=== PATIENT | male | born 1945 | race Caucasian/White ===

== ENCOUNTER 2019-11-10 17:15 | Emergency (ER) | payer OTHER ==
[~2019-11-10] VITALS: Ht 172.7 cm; Wt 130.6 kg
[~2019-11-10 17:15] MED LIST: ACYC800 PO; ALBU3IS INH; ALBU90OI INH; ALBU90OI6 INH; ALBU90OI61 INH; AMIT50 PO; AMIT75; ASPI81CH PO; ASPI81EC PO; Antacid500 MG PO; Aranesp40 MCG/0.4 INJ; BIOTENE MOIST44.3 ML PO; BUDESONIDE 32 MCG; BUME2 PO; BUSP15; BUSP15 PO; CALC.25 PO; CALCIUM + D SO1 EACH PO; CALMAGZIN PO; CLON.5 PO; CLON1 PO; COMPLETE MULTI1 EAC1 PO; DIGO.125 PO; DUTA.5 PO; DUTASTERIDE0.5 MG PO; EQUATE; FLUSAL2505; FLUSAL2505 INH; FURO40 PO; Flonase 0.05% N16 GM; GABA300 PO; Gas Relief80 MG PO; HYDACE10A PO; HYDACE10B PO; IPRA.03NI; IRON150C PO; LEVFLO500; LISI5 PO; LUBRICANT EYE D10 ML BOTHEYES; MECL25; METO2.5 PO; MOISTURIZING L473 ML TOP; NAPR500; NEBI10 PO; NITR.4SL SL; NYST100TO TOP; Nystatin15 GM TOP; OMEP20ER PO; Omeprazole20 M1 PO; POTA10T PO; PREVIDENT; PYRI100 PO; QUIN325; RISP.25 PO; SERT100; SERT100 PO; SPIR25 PO; TAMS.4ER; TRIA80TC TOP; Triamcinolone A15 G3 TOP; VITAMIN D3400 UNIT PO; [UNRECOGNIZED DRUG - REMARK] PO
== END 2019-11-10 20:03 | disposition home or self-care (01) ==
LOC: ER 17:15
DX: S01.01XA Laceration without foreign body of scalp, initial encounter (principal); M84.48XA Pathological fracture, other site, initial encounter for fracture; J44.9 Chronic obstructive pulmonary disease, unspecified; F32.9 Major depressive disorder, single episode, unspecified; Z88.0 Allergy status to penicillin; Z79.82 Long term (current) use of aspirin; Z79.899 Other long term (current) drug therapy; Z87.891 Personal history of nicotine dependence; W01.198A Fall on same level from slipping, tripping and stumbling with subsequent striking against other object, initial encounter; Y92.009 Unspecified place in unspecified non-institutional (private) residence as the place of occurrence of the external cause
CPT/HCPCS: 12004; 36415; 70450; 72070; 72100; 99284-25

== ENCOUNTER 2021-10-08 21:08 | Inpatient (IN) | payer OTHER ==
[~2021-10-08] VITALS: Ht 172.7 cm; Wt 75.4 kg
[2021-10-08] MEDS ORDERED: BUMETANIDE2 M6 PO (21:36)
[2021-10-08] MEDS ORDERED: AMITRIPTYLINE H25 MG PO (21:37)
[2021-10-08 21:52] LABS: BASOPHILS ABSOLUTE AUTO 0.07 K/mm3 (0.00-0.23); BASOPHILS PERCENT AUTO 0 % (0-2); EOSINOPHILS ABSOLUTE AUTO 0.02 K/mm3 (0.00-0.68); EOSINOPHILS PERCENT AUTO 0 % (0-6); Hematocrit 40.6 % (37.0-53.0); Hemoglobin 13.4 g/dL (13.5-17.5); IMMATURE GRAN ABSOLUTE AUTO 0.15 K/mm3 (0.00-0.10); IMMATURE GRAN PERCENT AUTO 1 % (0-1); LYMPHOCYTES PERCENT AUTO 7 % (21-46); MONOCYTES ABSOLUTE AUTO 2.44 K/mm3 (0.16-1.47); MONOCYTES PERCENT AUTO 10 % (4-13); Mean Corpuscular HGB 32.9 pg (26.0-34.0); Mean Corpuscular Volume 100 fL (80-100); Mean Platelet Volume 11.7 fL (9.1-12.4); NEUTROPHILS ABSOLUTE AUTO 20.59 K/mm3 (1.96-9.15); NEUTROPHILS PERCENT AUTO 82 % (41-73); Platelet Count 245 K/mm3 (150-400); RDW Coefficient Variation 13.4 % (11.7-14.2); RDW Standard Deviation 49.4 fL (35.1-46.3); Red Blood Cell Count 4.07 M/mm3 (4.30-5.90); White Blood Cell Count 24.97 K/mm3 (4.00-11.30)
[2021-10-08 22:01] LABS: Source, Urine Clean Catch
[2021-10-08 22:04] LABS: Albumin, Blood 2.7 g/dL (3.4-5.0); Albumin/Globulin Ratio 0.7 (0.8-1.8); Bun/Creatinine Ratio 18.5 (12.0-20.0); Calcium, Blood 9.6 mg/dL (8.5-10.1); Creatinine, Blood 2.75 mg/dL (0.60-1.20); Globulin, Blood 4.1 g/dL (2.2-4.0); Potassium, Blood 3.5 mmol/L (3.5-5.5); Total Protein, Blood 6.8 g/dL (6.4-8.2)
[2021-10-08 22:08] LABS: Bilirubin, Urine Neg (Neg); Blood, Urine Neg (Neg); Glucose Qualitative, Urine Neg (Neg); Ketones, Urine Neg (Neg); Leukocyte Esterase, Urine Neg (Neg); Nitrite, Urine Neg (Neg); Protein, Urine Neg (Neg); Urobilinogen, Urine NORM (Normal)
[2021-10-08 22:26] LABS: Appearance, Urine Clear (Clear); Color, Urine Yellow (P-Yellow)
[2021-10-08 22:42] LABS: Creatine Kinase MB 5.4 ng/mL (0.0-3.6); Creatine Kinase MB Index 1.8 (0.0-4.0)
[2021-10-08 23:27] LABS: Influenza A, PCR NEGATIVE (NEGATIVE); Influenza B, PCR NEGATIVE (NEGATIVE); Resp Syncytial Virus, PCR NEGATIVE (NEGATIVE); SARS-Cov-2 (COVID-19) PCR, MMC NEGATIVE (NEGATIVE)
[2021-10-09 06:06] LABS: BASOPHILS ABSOLUTE AUTO 0.06 K/mm3 (0.00-0.23); BASOPHILS PERCENT AUTO 0 % (0-2); EOSINOPHILS ABSOLUTE AUTO 0.07 K/mm3 (0.00-0.68); EOSINOPHILS PERCENT AUTO 0 % (0-6); Hematocrit 36.8 % (37.0-53.0); Hemoglobin 11.6 g/dL (13.5-17.5); IMMATURE GRAN PERCENT AUTO 1 % (0-1); LYMPHOCYTES ABSOLUTE AUTO 1.91 K/mm3 (0.84-5.20); LYMPHOCYTES PERCENT AUTO 11 % (21-46); MONOCYTES ABSOLUTE AUTO 1.69 K/mm3 (0.16-1.47); MONOCYTES PERCENT AUTO 10 % (4-13); Mean Corpuscular HGB 32.5 pg (26.0-34.0); Mean Corpuscular HGB Conc 31.5 g/dL (31.5-36.5); Mean Corpuscular Volume 103 fL (80-100); Mean Platelet Volume 11.5 fL (9.1-12.4); NEUTROPHILS ABSOLUTE AUTO 13.72 K/mm3 (1.96-9.15); NEUTROPHILS PERCENT AUTO 78 % (41-73); Platelet Count 193 K/mm3 (150-400); RDW Coefficient Variation 13.4 % (11.7-14.2); RDW Standard Deviation 51.7 fL (35.1-46.3); Red Blood Cell Count 3.57 M/mm3 (4.30-5.90); White Blood Cell Count 17.55 K/mm3 (4.00-11.30)
[2021-10-09 06:24] LABS: Albumin, Blood 2.2 g/dL (3.4-5.0); Albumin/Globulin Ratio 0.6 (0.8-1.8); Bun/Creatinine Ratio 18.9 (12.0-20.0); Calcium, Blood 7.8 mg/dL (8.5-10.1); Creatinine, Blood 2.28 mg/dL (0.60-1.20); Globulin, Blood 3.8 g/dL (2.2-4.0); Potassium, Blood 3.3 mmol/L (3.5-5.5)
--- NOTE | 2021-10-09 07:20 | NUR ---
END OF SHIFT PT ARRIVED AT 430 PT IS A&O X4 HAVING SIGNIFICANT PAIN FROM THE 15 FALLS HE STATES HES HAD LAST 2 DAYS. PT IS COVERED WITH SKIN TEARS AND BRUSING. CENTRAL LINE WAS PLACED AT BEDSIDE FOR PRESSOR XRAY CONFERMED PLACEMENT. PT REMAINS ON RA ALTHOUGH PT SOUNDS WET BILATERAL. SEE ASSESMRNT FOR HEAD TO TOE
[2021-10-09 10:51] LABS: Source, Urine Voided
[2021-10-09 11:27] LABS: Appearance, Urine Clear (Clear); Bilirubin, Urine Neg (Neg); Blood, Urine Neg (Neg); Color, Urine Yellow (P-Yellow); Glucose Qualitative, Urine Neg (Neg); Ketones, Urine Neg (Neg); Leukocyte Esterase, Urine Neg (Neg); Nitrite, Urine Neg (Neg); Protein, Urine Neg (Neg); Specific Gravity, Urine 1.015 (1.003-1.022); Urobilinogen, Urine NORM (Normal)
--- NOTE | 2021-10-09 14:02 | NUR ---
Pt resting in bed and appears weak and frail. Pt is A&O and reports being hungry. Listened as Pt reports plan for ST to evaluate before receiving a diet. Brief discussion regarding current code status and POLST on file. Gentle education on life sustaining treatments including risk factors and implications of CPR. Pt reports being unsure of his wishes and would like some time to consider. Pt agreeable to remain a full code for now. Palliative Care will remain available.
--- NOTE | 2021-10-09 22:03 | NUR ---
update $ unitsd of ffp transfused and lp compleated by Vini allen CSF sent to lab. pt was hypertensive in 190s but 2mg of versed and 50 mcg of fent given with good results blood pressure is coming down. will continue to moniter
[2021-10-10 04:05] LABS: BASOPHILS ABSOLUTE AUTO 0.01 K/mm3 (0.00-0.23); BASOPHILS PERCENT AUTO 0 % (0-2); EOSINOPHILS ABSOLUTE AUTO 0.01 K/mm3 (0.00-0.68); EOSINOPHILS PERCENT AUTO 0 % (0-6); Hematocrit 35.3 % (37.0-53.0); Hemoglobin 11.5 g/dL (13.5-17.5); IMMATURE GRAN ABSOLUTE AUTO 0.06 K/mm3 (0.00-0.10); IMMATURE GRAN PERCENT AUTO 1 % (0-1); LYMPHOCYTES ABSOLUTE AUTO 0.74 K/mm3 (0.84-5.20); LYMPHOCYTES PERCENT AUTO 7 % (21-46); MONOCYTES PERCENT AUTO 2 % (4-13); Mean Corpuscular HGB Conc 32.6 g/dL (31.5-36.5); Mean Corpuscular Volume 101 fL (80-100); Mean Platelet Volume 11.1 fL (9.1-12.4); NEUTROPHILS ABSOLUTE AUTO 9.78 K/mm3 (1.96-9.15); NEUTROPHILS PERCENT AUTO 90 % (41-73); Platelet Count 223 K/mm3 (150-400); RDW Coefficient Variation 13.4 % (11.7-14.2); RDW Standard Deviation 50.6 fL (35.1-46.3); Red Blood Cell Count 3.48 M/mm3 (4.30-5.90)
[2021-10-10 04:23] LABS: Albumin, Blood 2.2 g/dL (3.4-5.0); Albumin/Globulin Ratio 0.6 (0.8-1.8); Bilirubin, Total 0.4 mg/dL (0.1-1.0); Bun/Creatinine Ratio 17.5 (12.0-20.0); Calcium, Blood 7.6 mg/dL (8.5-10.1); Creatinine, Blood 2.23 mg/dL (0.60-1.20); Globulin, Blood 3.8 g/dL (2.2-4.0); Magnesium, Blood 1.8 mg/dL (1.6-2.4); Phosphorus, Blood 2.1 mg/dL (2.5-4.9); Potassium, Blood 3.6 mmol/L (3.5-5.5)
--- NOTE | 2021-10-10 04:48 | NUR ---
END OF SHIFT SUMMARY NO OVERNIGHT EVENTS. PT REMAINS ON LEVOPHED WAS ABLE TO TITRATE TO 2.5 WILL CONTINUE TO TITRATE DOWN APPROPRIATE. PT HAD SIGNIFICANT PAIN AT START OF SHIFT BUT 1 NORCO WAS ABLE TO KEEP HIS PAIN WELL CONTROLLED. PT IS COVERED IN SKIN TEARS AND BRUSING FROM HIS MULITABLE FALLS. HES SINUS RYTHEM IN 80'S 100% O2 SATURATION ON ROOM AIR.WILL CONTINUE TO MONITOR AND REPORT OFF TO ON COMMING RN
--- NOTE | 2021-10-10 09:30 | NUR ---
UPDATE: KAIDEN SWAIN. SEE INSTRUCTIONs OUTSIDE PT DOOR. DIET: PUREE LIQUIDS: THIN w/ SPOON ONLY, NO STRAWs MEDS: CRUSHED IN APPLESAUCE ASSIST W/ ALL MEALS. ORAL CARE q4hr
--- NOTE | 2021-10-10 10:54 | NUR ---
DR HAMMER @ BEDSIDE FOR AM ROUNDS; UPDATED ON PT POSITIVE PROGRESS T/O THE MORNING. DISCUSSED CONCERN FOR INC SWELLING & REDNESS TO L HAND & FINGERS. ++PULSES, ROM LIMITED D/T SWELLING BUT PT ABLE TO DEMONSTRATE RADIAL & MEDIAN NERVE INTACT. DR HAMMER TO PLACE ORDERS FOR L HAND & CHEST CT. PT REPORTS PAIN CONTROLLED, CALL LIGHT W/ IN REACH.
--- NOTE | 2021-10-10 16:17 | NUR ---
PT'S NEIGHBOR, MEI, IS CARING FOR HIS DOG. HE REQUESTS SHE TAKE HIS KEYS & TAKE CARE OF HIS HOME & MAIL. MEI CALLED & UPDATED. SHE EXPRESSES HER CONCERN W/ THE PT's LIVING SITUATION, THAT IT IS UNSAFE THE PT HAS HIS FLOOR COVERED IN DOG PEE PADS & IT IS A FALL RISK. DESPITE CAREGIVER HELP x26hr/week, SHE DOES NOT BELIEVE HE IS RECEIVING GOOD CARE. NEIGHBOR WILL BE HERE SHORTLY FOR VISITATION. CONTACT INFO:
--- NOTE | 2021-10-10 16:33 | NUR ---
IN SPEAKING TO PT ABOUT WHAT KIND OF HELP HE RECEIVES FROM HIS CAREGIVER, PT STS "SHE WEIGHS 300lbs AND CAN'T HELP ME UP OR WITH MUCH OF ANYTHING". STS SHE DOES TAKE HIM GROCERY SHOPPING BUT HELPS MINIMALLY IN THE HOME. WILL DISCUSS W/ CARE MANAGEMENT & PALLIATIVE CARE WHEN AVAILABLE TO ENSURE SAFE DC.
--- NOTE | 2021-10-10 17:28 | NUR ---
UPDATE: MAPs CONSISTENTLY TRENDING DOWN WHEN APPROACHING TIME FOR SCHEDULED MIDODRINE. WITHIN 15min OF TAKING DOSE, MAP BEGIN TO TREND UP TO >65 & MAINTAIN >65. WILL DISCUSS INCREASING DOSE W/ HOSPITALIST ONCE AVAILABLE.
--- NOTE | 2021-10-10 22:14 | NUR ---
SHIFT ASSESSMENT ASSUMED CARE OF PT @ 1900. PT A&OX4, FOLLOWING ALL COMMANDS. PT C/O MILD PAIN IN L ARM AND RIBS BUT STILL ABLE ASSIST WITH TURNS. USING CALL LIGHT APPROPRIATELY, NEEDS ASSISTANCE WITH URINAL AND BEDPAN. PT HAD SMALL BM AT BEGINNING OF SHIFT, LOOSE STOOL. VSS AT THIS TIME, MAP REMAINS >65 c MIDODRINE. NO COMPLAINTS OR CONCERNS FROM PT AT THIS TIME, WILL MONITOR CLOSELY.
[2021-10-11 04:10] LABS: BASOPHILS ABSOLUTE AUTO 0.01 K/mm3 (0.00-0.23); BASOPHILS PERCENT AUTO 0 % (0-2); EOSINOPHILS PERCENT AUTO 0 % (0-6); Hematocrit 31.6 % (37.0-53.0); Hemoglobin 10.4 g/dL (13.5-17.5); IMMATURE GRAN ABSOLUTE AUTO 0.05 K/mm3 (0.00-0.10); IMMATURE GRAN PERCENT AUTO 1 % (0-1); LYMPHOCYTES ABSOLUTE AUTO 0.72 K/mm3 (0.84-5.20); LYMPHOCYTES PERCENT AUTO 7 % (21-46); MONOCYTES ABSOLUTE AUTO 0.25 K/mm3 (0.16-1.47); MONOCYTES PERCENT AUTO 2 % (4-13); Mean Corpuscular HGB 33.2 pg (26.0-34.0); Mean Corpuscular HGB Conc 32.9 g/dL (31.5-36.5); Mean Corpuscular Volume 101 fL (80-100); Mean Platelet Volume 10.9 fL (9.1-12.4); NEUTROPHILS ABSOLUTE AUTO 9.79 K/mm3 (1.96-9.15); NEUTROPHILS PERCENT AUTO 90 % (41-73); Platelet Count 164 K/mm3 (150-400); RDW Coefficient Variation 13.2 % (11.7-14.2); RDW Standard Deviation 49.1 fL (35.1-46.3); Red Blood Cell Count 3.13 M/mm3 (4.30-5.90); White Blood Cell Count 10.82 K/mm3 (4.00-11.30)
[2021-10-11 04:28] LABS: Creatinine, Blood 2.06 mg/dL (0.60-1.20); Phosphorus, Blood 2.5 mg/dL (2.5-4.9); Potassium, Blood 3.7 mmol/L (3.5-5.5)
--- NOTE | 2021-10-11 06:30 | NUR ---
SHIFT SUMMARY PT ABLE TO SLEEP FOR MOST OF THE NIGHT, FULLY ALERT AND ORIENTED WHEN AWAKE. COOPERATIVE AND PLEASANT WITH CARE. CONSISTENTLY HELPING WITH TURNS BUT VERY SLOW TO TURN. BP c MAP >65 WITH MIDODRINE, LEVOPHED OFF ALL SHIFT. PT USING URINAL WITHOUT ISSUE, HE HAD MULTIPLE LOOSE BM'S IN BEDPAN. NO OTHER ACUTE CHANGES DURING THE NIGHT.
--- NOTE | 2021-10-11 07:14 | NUR ---
ASSUMED CARE OF PT @1900 PT SLEEPING WITH NO VISITORS IN ROOM. NO IV LINES RUNNING AT THIS TIME. VITALS WNL. SEE ASSESSMENT FOR FURTHER INFORMATION.
--- NOTE | 2021-10-11 17:59 | NUR ---
END OF SHIFT SUMMARY NEURO-PT A/O X4 AND COOPERATIVE WITH CARE. CARDIAC- NORMAL SINUS RHYTHM WITH INTERMITTENT TACHY EPISODES. BP WNL AND TREATED WITH MIDODRINE ACCORDING TO SCHEDULED ORDERS. RESP-LUNG SOUNDS CLEAR THROUGHOUT WITH DIMINISHED BASES BILATERALLY. WET COUGH WITH QUARTER SIZE PURULANT SPUTUM AT TIME. O2 SATS IN UPPER 90'S THROUGHOUT SHIFT. INTEG- BRUISING AND SCABBING THROUGHOUT ENTIRE BODY AT VARRYING STAGES OF HEALING D/T MULTIPLE FALLS OVER SEVERAL DAYS BEFORE ADMIT TO HOSPITAL. PERIPHERAL IV LOCATED ON RIGHT WRIST PATENT AND FLUSHING WELL. CENTRAL LINE ON RIGHT SIDE OF NECK PATENT WITH BLOOD RETURN. CENTRAL LINE USED THIS SHIFT FOR ANTIBIOTIC THERAPY AZITHROMYACIN ORDERED. BANDAGES ON LEFT ARM CHANGED THIS SHIFT. AREAS ARE HEALING EXPECTED WITH NO S/S OF INFECTION. GI-NO BOWEL MOVEMENT THIS SHIFT. PT HAS URGE, ONLY PASSING FLATULANCE AT THIS TIME. - PT USES URINAL WITH NO ISSUES. URINE DARK YELLOW. MEDICATIONS CRUSHED IN APPLESAUCE WHEN GIVEN. PURREE DIET STILL ON ORDER.
--- NOTE | 2021-10-11 19:00 | NUR ---
ASSUMED CARE OF PT, REPORT RECEIVED. PT IS RESTING QUIETLY RECLINING IN BED AND WATCHING TV. DENIES NEEDS AT THIS TIME, CALL LIGHT IN REACH AND PT STATES THAT HE WILL CALL FOR ASSISTANCE WHEN REQUIRED.
[2021-10-12 04:25] LABS: BASOPHILS ABSOLUTE AUTO 0.01 K/mm3 (0.00-0.23); BASOPHILS PERCENT AUTO 0 % (0-2); EOSINOPHILS PERCENT AUTO 0 % (0-6); Hematocrit 34.5 % (37.0-53.0); Hemoglobin 11.2 g/dL (13.5-17.5); IMMATURE GRAN PERCENT AUTO 1 % (0-1); LYMPHOCYTES ABSOLUTE AUTO 0.54 K/mm3 (0.84-5.20); LYMPHOCYTES PERCENT AUTO 5 % (21-46); MONOCYTES ABSOLUTE AUTO 0.27 K/mm3 (0.16-1.47); MONOCYTES PERCENT AUTO 2 % (4-13); Mean Corpuscular HGB 32.7 pg (26.0-34.0); Mean Corpuscular HGB Conc 32.5 g/dL (31.5-36.5); Mean Corpuscular Volume 101 fL (80-100); Mean Platelet Volume 10.9 fL (9.1-12.4); NEUTROPHILS ABSOLUTE AUTO 10.31 K/mm3 (1.96-9.15); NEUTROPHILS PERCENT AUTO 92 % (41-73); Platelet Count 189 K/mm3 (150-400); RDW Coefficient Variation 13.1 % (11.7-14.2); RDW Standard Deviation 49.3 fL (35.1-46.3); Red Blood Cell Count 3.42 M/mm3 (4.30-5.90); White Blood Cell Count 11.23 K/mm3 (4.00-11.30)
[2021-10-12 04:54] LABS: Albumin, Blood 2.2 g/dL (3.4-5.0); Albumin/Globulin Ratio 0.6 (0.8-1.8); Bilirubin, Total 0.3 mg/dL (0.1-1.0); Bun/Creatinine Ratio 18.7 (12.0-20.0); Calcium, Blood 7.5 mg/dL (8.5-10.1); Creatinine, Blood 2.09 mg/dL (0.60-1.20); Globulin, Blood 3.4 g/dL (2.2-4.0); Phosphorus, Blood 2.1 mg/dL (2.5-4.9); Potassium, Blood 3.7 mmol/L (3.5-5.5); Total Protein, Blood 5.6 g/dL (6.4-8.2)
--- NOTE | 2021-10-12 05:45 | NUR ---
PT RESTS QUIETLY THROUGHOUT SHIFT, CALLS FOR ASSIST WITH TURNS WHEN FULLY AWAKE HOWEVER WITH SLEEP PT WAS NOTED TO NOT TURN SELF WELL AND EVERY 2 HOUR TURNS WERE PROVIDED. PRESSURES HAVE MAINTAINED THROUGHOUT SHIFT, PT WAS NOTED TO HAVE SINUS TACH EARLY IN THE SHIFT WITH RATES UP TO 130S HOWEVER RESOLVED WITHOUT INTERVENTION. USES CALL LIGHT APPROPRIATELY TO REQUEST ASSIST PRN. NO ACUTE CHANGES THIS SHIFT.
--- NOTE | 2021-10-12 14:00 | NUR ---
UPDATE: SWALLOW STUDY RESULTS PT RETURNS FROM CONTRAST SWALLOW STUDY, AGITATED, DEPRESSED. PT EXPRESSES HIS FRUSTRATION REGARDING THE STUDY STATING HE DID NOT UNDERSTAND & THOUGHT HE WAS FOLLOWING DIRECTIONS BUT WAS TOLD HE CANNOT EAT OR DRINK NOW. PT REPEATS, "I GARGLE TO GET THE LEFTOVERS OUT OF MY MOUTH BUT I CAN'T DO THAT WITHOUT WATER AND THEY WOULDN'T GIVE ME ANY WATER". IN SPEAKING W/ THE SPEECH THERAPIST, SHE EXPLAINS THE PT APPEARED VERY CONFUSED T/O THE TEST & WAS UNABLE TO COMPREHEND DIRECTIONS & WAS NOT ABLE TO COMPLETE EVEN HALF OF THE TEST. PROVIDER TO BE UPDATED SHORTLY
--- NOTE | 2021-10-12 14:36 | NUR ---
Spiritual Care Attempted: Nurse request Pt. is with OT. Will attempt to visit before end of shift.
--- NOTE | 2021-10-12 16:00 | NUR ---
UPDATE: AFTERNOON ROUNDS /NPO STATUS CHANGE. DR VILLATORO @ BEDSIDE TO DISCUSS W/ PT SWALLOW EVAL. PT IS VERY TEARFUL, ADAMANT THAT HE WANTS TO EAT AND DRINK. SHAUNA DISCUSSES RISKS VS. BENEFIT OF NOT ADHEREING TO SPEECH THERAPY's SUGGESTION & THE RISK OF ASPIRATION & WORSENING CONDITION. PT VERBALIZES UNDERSTANDING OF RISKS & CONTINUES TO INSIST ON PO INTAKE. ALL PARTIES ARE IN AGREEMENT & SHAUNA WILL CHANGE ORDERS. PT TO BE TRANSFERRED TO PCU SHORTLY. REPORT GIVEN TO DYLAN ALLEN.
--- NOTE | 2021-10-12 18:17 | NUR ---
END OF SHIFT: NO CHANGES FOR[facility] ASSESSMENT: MOSTLY ALERT AND ORIENTED, NO CONCERNS FROM THIS TIME. PALLIATIVE CARE SEEN AND POLST AWAITING FOR DR. RODRÍGUEZ, PATIENT HAS POTASSIUM PHOS, INFUSING. DENIES CHEST PAIN OR SOB. AT THIS TIME IS ON RA, BRUISES, SKIN TEARS, OF ALL VARIOUS STAGES OF HEALING ARE PRESENT. PATIENT HAS A CENTRAL LINE, RIGHT ARM IV. SPOKE WITH DR. VILLATORO AND PATIENT OK FOR MECH SOFT, AND SIPS OF WATER FOR PILLS, WILL CONTINUE TO MONITOR UNTIL SHIFT CHANGE. TELE IN PLACE. PATENT PAIN MEDCIATED PER EMAR, NO CONCERNS FROM THIS PROTECTION MGR AT THIS TIME.
--- NOTE | 2021-10-12 18:28 | NUR ---
Reviewed POLST with pt, he is ready to change to DNR status after his talk with Dr. Abrams today regarding PO intake. The pt is at high risk for aspiration pneumonia, but he states eating and drinking bring great pleasure for him and he is "more than willing" to accept the risk. He is alert and oriented. 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 Palliative care to remain involved.
--- NOTE | 2021-10-13 05:48 | NUR ---
SHIFT SUMMARY PT ALERT AND ORIENTED X 4. FORGETFUL AT TIMES, BED ALARM IN PLACE. HR STABLE. BP STABLE. OXYGEN SATURATION MAINTAINED ABOVE 95% ON 2 L VIA NC. NO CP OR PRESSURE. WOUNDS CLEANED AND DRESSINGS RE-DRESSED. PT ABLE TO TURN SELF IN BED. 2 PERSON ASSIST TO COMMODE. CALL LIGHT WITHIN REAHCH. PT SLEPT T/O SHIFT. WILL CONT TO MONITOR UNTIL REPORT GIVEN TO DAYSHIFT RN.
[2021-10-13 08:28] LABS: BASOPHILS ABSOLUTE AUTO 0.01 K/mm3 (0.00-0.23); BASOPHILS PERCENT AUTO 0 % (0-2); EOSINOPHILS ABSOLUTE AUTO 0.01 K/mm3 (0.00-0.68); EOSINOPHILS PERCENT AUTO 0 % (0-6); Hematocrit 37.3 % (37.0-53.0); Hemoglobin 12.3 g/dL (13.5-17.5); IMMATURE GRAN ABSOLUTE AUTO 0.07 K/mm3 (0.00-0.10); IMMATURE GRAN PERCENT AUTO 1 % (0-1); LYMPHOCYTES ABSOLUTE AUTO 0.79 K/mm3 (0.84-5.20); LYMPHOCYTES PERCENT AUTO 7 % (21-46); MONOCYTES ABSOLUTE AUTO 0.61 K/mm3 (0.16-1.47); MONOCYTES PERCENT AUTO 6 % (4-13); Mean Corpuscular HGB 33.7 pg (26.0-34.0); Mean Corpuscular Volume 102 fL (80-100); Mean Platelet Volume 10.6 fL (9.1-12.4); NEUTROPHILS ABSOLUTE AUTO 9.14 K/mm3 (1.96-9.15); NEUTROPHILS PERCENT AUTO 86 % (41-73); Platelet Count 194 K/mm3 (150-400); RDW Coefficient Variation 13.5 % (11.7-14.2); RDW Standard Deviation 51.4 fL (35.1-46.3); Red Blood Cell Count 3.65 M/mm3 (4.30-5.90); White Blood Cell Count 10.63 K/mm3 (4.00-11.30)
[2021-10-13 09:04] LABS: Albumin, Blood 2.3 g/dL (3.4-5.0); Albumin/Globulin Ratio 0.7 (0.8-1.8); Bilirubin, Total 0.3 mg/dL (0.1-1.0); Bun/Creatinine Ratio 20.8 (12.0-20.0); Calcium, Blood 7.9 mg/dL (8.5-10.1); Creatinine, Blood 1.97 mg/dL (0.60-1.20); Globulin, Blood 3.4 g/dL (2.2-4.0); Magnesium, Blood 2.1 mg/dL (1.6-2.4); Phosphorus, Blood 3.1 mg/dL (2.5-4.9); Total Protein, Blood 5.7 g/dL (6.4-8.2)
--- NOTE | 2021-10-13 13:50 | NUR ---
Spiritual Care Visit. Pt. is awake in bed and welcmoes my visit. Pt. is unsettled by his lack of strength and the recent of his cherished dog. Listen empathetically with a calming presence. Pt. displayed evidence of engagement and gratitude. Facilitated a life review and established rapport. Prayed with Pt. Pt. verblaized gratitude for the spiritual care visit, and invited this street openings inspector to return.
--- NOTE | 2021-10-13 15:11 | NUR ---
REPORT GIVEN TO DYLAN REYNA REPORT GIVEN TO DYLAN REYNA ON MEDICAL FLOOR. PT CENTRAL LINE REMOVED BY DYLAN DIAZ. PT CURRENTLY LYING FLAT IN BED.
--- NOTE | 2021-10-13 15:45 | NUR ---
TRANSFER TO 327 PT TRANSFERED TO 327 VIA BED. PT WORKED WITH PHYSICAL THERAPY AND OCCUPATIONAL THERAPY PRIOR TO TRANSFER. MOD 1P ASSIST TRANSFER. 2 BMS THIS SHIFT. PT CALLED WHEN HE NEEDED SOMETHING AND WAS ORIENTED T/O SHIFT. PT TOLERATING MECH SOFT DIET. VERBALIZED THE IMPORTANCE OF TUCKING HIS CHIN WHEN SWALLOWING. CENTRAL LINE REMOVED THIS SHIFT. BANDAGES TO ARMS BILATERALLY CHANGED AND PHOTOGRAPHED THIS SHIFT. PT INTRODUCED TO HIS NEW NURSE, AXEL AND ORIENTED TO NEW ROOM.
--- NOTE | 2021-10-13 18:12 | NUR ---
SHIFT SUMMARY 0400 RECEIVED PT TO RM 327 VIA GURADALBERTO FROM [facility]. PT IS A&O, SONIDO AND CO-OP. RECEIVED REPORT FROM OMI RICHARDSON. PT WAITING TO D/C TO SNF, POSSIBLY TOMORROW. SITTING UPRIGHT IN BED, WATCHING TV. ON 2L O2; AT BASELINE. BED ALARM ON FOR SAFETY. CALL LT IN REACH.
--- NOTE | 2021-10-14 05:39 | NUR ---
76 year old PT who lives alone & has CAP with suspected aspiration who has multiple falls recently with skin tears & bruises scattered. CKD creatinine & GFR improving. Room air, PT denies SOB. No cough or aspiration with oral intake noted. PT wants rehab prior to return home. PT is says he has group fitness department head assistance available at home. Declines pain med but states chronic back pain.
--- NOTE | 2021-10-14 16:35 | NUR ---
Spiritual Care Visit. Pt, is awake in bed and welcomes my visit. The Pt. is unsettled by the need to go to a SNF upon Discharge. Listen empathetically with a calming presence. The Pt. displays evidence of understanding why, but is disappointed nonetheless. Listen theraputiccally to the Pt. who lost his beloved 4 yr. old dog while he was hosptialized. Facilitated a borader life review. Pt. displayed evidence of being comforted. Prayed with Pt. Pt. verbalized gratitude for the spiritual care visit, and requested I leave the door open.
--- NOTE | 2021-10-14 17:04 | NUR ---
SHIFT SUMMARY- PT BEDFAST. PT REFUSED PT DUE TO FATIGUE. PT APPETITE GOOD. PT MOOD LABILE. VSS. NO ACUTE CHANGES. PT COOPERATIVE WITH MEDICATIONS AND NURSING CARE GIVEN. PT RESTING NOW WITH CALL LIGHT IN REACH, BED ALARM ON, AND SIDE RAILS UP.
--- NOTE | 2021-10-15 00:20 | NUR ---
DR Morgan notified PT was tachycardic persistant [id number] at rest. Pulse above 140 persisted & EKG completed per order & showed tachycardia rate 133. IVF at 125 ml hr x 12 hrs started and pulse now 111 at rest.
--- NOTE | 2021-10-15 05:50 | NUR ---
PT with septic shock silent aspiration CAD & CKD who has angina uses nitro. Was found to have elevated HR 149 at rest. MD notified & PT assessed for continued tachycardia. EKG done which showed sinus tachy & rate eventually lowered to 111 recieving IV fluid at 125 ml hr x 12 hours. Denies chest pain or acute distress. PT does have home oxygen 2 l for COPD & had misinformed me due to [place] & not wearing hearing aides. He also has home nebs. PT was in septic shock & he had speech therapy want npo status due to silent aspiration but PT declined & he acknowleges that he will continue to aspirate and has DNR. There was discussion of home with hospice after SNF. DC planning to SNF. PT says he has stock parts inspector help at home, but has had multiple falls due to medical conditions. Calls approp. for assist. Pleasant
[2021-10-15 10:05] LABS: Influenza A, PCR NEGATIVE (NEGATIVE); Influenza B, PCR NEGATIVE (NEGATIVE); Resp Syncytial Virus, PCR NEGATIVE (NEGATIVE); SARS-Cov-2 (COVID-19) PCR, MMC NEGATIVE (NEGATIVE)
--- NOTE | 2021-10-15 12:10 | NUR ---
DISCHARGE WHEELCHAIR VERMIN EXTERMINATOR TO DISCHARGE TO [facility] AT 12 NOON. REPORT TO IFTIKHAR RICHARDSON AT [facility]. TRANSPORTER KINDLY STOPPING AT SECURITY FOR PT TO VERMIN EXTERMINATOR HIS BELONGLINGS. PT OX4. TRANSFERED FROM BED TO WHEELCHAIR WITH ONE ASSIST AND GAIT BELT, WEAK BUT STEADY. PIV REMOVED PRE DC. NO COUGHING NOTED AFTER PT ATE BREAKFAST. PT SEEN BY DIOGENES, AUGIE THIS MORNING.
== END 2021-10-15 12:17 | DRG 871 ==
LOC: ER 21:08 → ICUW 10-09 02:22 → PCU 10-09 02:22 → ICUW 10-09 04:13 → PCU 10-12 16:24 → MEDS 10-13 15:35
PROVIDERS: Family Medicine; Hospitalist; Student in an Organized Health Care Education/Training Program; ADMIT Internal Medicine
PROC: 3E03329 Introduction of Other Anti-infective into Peripheral Vein, Percutaneous Approach (ICD-10-PCS; principal; 2021-10-09)
PROC: 3E033XZ Introduction of Vasopressor into Peripheral Vein, Percutaneous Approach (ICD-10-PCS; 2021-10-09)
DX: A41.9 Sepsis, unspecified organism (principal); J18.9 Pneumonia, unspecified organism; R65.21 Severe sepsis with septic shock; J69.0 Pneumonitis due to inhalation of food and vomit; N17.9 Acute kidney failure, unspecified; N18.4 Chronic kidney disease, stage 4 (severe); J44.0 Chronic obstructive pulmonary disease with (acute) lower respiratory infection; R29.6 Repeated falls; M79.89 Other specified soft tissue disorders; Z20.822 Contact with and (suspected) exposure to COVID-19; F32.A Depression, unspecified; E86.0 Dehydration; E88.09 Other disorders of plasma-protein metabolism, not elsewhere classified; I95.1 Orthostatic hypotension; Z88.0 Allergy status to penicillin; Z79.52 Long term (current) use of systemic steroids; Z79.899 Other long term (current) drug therapy; Z79.51 Long term (current) use of inhaled steroids; Z98.890 Other specified postprocedural states; Z98.49 Cataract extraction status, unspecified eye; Z87.891 Personal history of nicotine dependence; Z79.82 Long term (current) use of aspirin; Z86.79 Personal history of other diseases of the circulatory system; Z99.81 Dependence on supplemental oxygen
CPT/HCPCS: 0241U; 36415; 36556; 70450; 71045; 71250; 73200; 74230; 80048; 80053; 81003; 82550; 82553; 83605; 83735; 83880; 84100; 84443; 85025; 87040; 92526; 92610; 92611; 93005; 93010; 94640; 94664; 94760; 94762; 96361; 96365; 96366; 97110; 97116; 97163; 97166; 97530; 97535; 99285-25; A9270; C1751; J0456; J0696; J1650; J1956; J2930; J3480; J7030; J7050; J7060

== ENCOUNTER → 2021-11-03 | Outpatient (CLI) | payer OTHER ==
[~2021-11-03] MED LIST changes: +AMITRIPTYLINE H25 MG PO; +BUMETANIDE2 M6 PO
[2021-11-04 14:50] LABS: Adenovirus F 40/41 Not Detected (NOT DETECT); Astrovirus Not Detected (NOT DETECT); Campylobacter Sp Not Detected (NOT DETECT); Cryptosporidium Not Detected (NOT DETECT); Cyclospora Cayetanensis Not Detected (NOT DETECT); E. Coli O157 Not Detected (NOT DETECT); Entamoeba Histolytica Not Detected (NOT DETECT); Enteroaggregative E. coli-EAEC Not Detected (NOT DETECT); Enteropathogenic E. coli-EPEC Not Detected (NOT DETECT); Enterotoxigenic E. coli-ETEC Not Detected (NOT DETECT); Giardia Lamblia Not Detected (NOT DETECT); Norovirus GI/GII Not Detected (NOT DETECT); Plesiomonas Shigelloides Not Detected (NOT DETECT); Rotavirus A Not Detected (NOT DETECT); Salmonella Sp Not Detected (NOT DETECT); Sapovirus Not Detected (NOT DETECT); Shiga Toxin-prod E. coli-STEC Not Detected (NOT DETECT); Shigella/Enteroin E. coli-EIEC Not Detected (NOT DETECT); Vibrio Cholerae Not Detected (NOT DETECT); Vibrio Sp Not Detected (NOT DETECT); Yersinia Enterocolitica Not Detected (NOT DETECT)
== END | disposition home or self-care (01) ==
LOC: LAB SHORT 11:00
PROVIDERS: Physician Assistant
DX: R19.5 Other fecal abnormalities (principal)
CPT/HCPCS: 87507

== ENCOUNTER 2021-11-23 06:14 | Inpatient (IN) | payer OTHER ==
[~2021-11-23] VITALS: Ht 167.6 cm; Wt 70.2 kg
[~2021-11-23 06:14] MED LIST changes: -COMPLETE MULTI1 EAC1 PO; +MULTI-VITAMIN1 EAC2 PO
[2021-11-23 06:57] LABS: BASOPHILS ABSOLUTE AUTO 0.07 K/mm3 (0.00-0.23); BASOPHILS PERCENT AUTO 1 % (0-2); EOSINOPHILS ABSOLUTE AUTO 0.08 K/mm3 (0.00-0.68); EOSINOPHILS PERCENT AUTO 1 % (0-6); Hematocrit 34.6 % (37.0-53.0); Hemoglobin 11.4 g/dL (13.5-17.5); IMMATURE GRAN ABSOLUTE AUTO 0.07 K/mm3 (0.00-0.10); IMMATURE GRAN PERCENT AUTO 1 % (0-1); LYMPHOCYTES ABSOLUTE AUTO 1.42 K/mm3 (0.84-5.20); LYMPHOCYTES PERCENT AUTO 10 % (21-46); MONOCYTES ABSOLUTE AUTO 0.91 K/mm3 (0.16-1.47); MONOCYTES PERCENT AUTO 7 % (4-13); Mean Corpuscular HGB 33.1 pg (26.0-34.0); Mean Corpuscular HGB Conc 32.9 g/dL (31.5-36.5); Mean Corpuscular Volume 101 fL (80-100); Mean Platelet Volume 10.1 fL (9.1-12.4); NEUTROPHILS ABSOLUTE AUTO 11.14 K/mm3 (1.96-9.15); NEUTROPHILS PERCENT AUTO 81 % (41-73); Platelet Count 244 K/mm3 (150-400); RDW Coefficient Variation 12.3 % (11.7-14.2); RDW Standard Deviation 45.4 fL (35.1-46.3); Red Blood Cell Count 3.44 M/mm3 (4.30-5.90); White Blood Cell Count 13.69 K/mm3 (4.00-11.30)
[2021-11-23 07:07] LABS: Base Excess Venous 4.4 mmol/L; Bicarbonate Venous 27.8 mmol/L (24.0-30.0); PCO2 Venous 45.5 mmHg (38-42); pH Blood Venous 7.41 (7.34-7.37)
[2021-11-23 07:17] LABS: Albumin, Blood 2.8 g/dL (3.4-5.0); Albumin/Globulin Ratio 0.7 (0.8-1.8); Bilirubin, Total 0.6 mg/dL (0.1-1.0); Calcium, Blood 9.5 mg/dL (8.5-10.1); Creatinine, Blood 2.5 mg/dL (0.60-1.20); Globulin, Blood 3.9 g/dL (2.2-4.0); Magnesium, Blood 1.7 mg/dL (1.6-2.4); Potassium, Blood 3.3 mmol/L (3.5-5.5); Total Protein, Blood 6.7 g/dL (6.4-8.2)
[2021-11-23 07:34] LABS: Source, Urine Straight Cath
[2021-11-23 07:40] LABS: Bilirubin, Urine Neg (Neg); Blood, Urine Neg (Neg); Glucose Qualitative, Urine Neg (Neg); Ketones, Urine Neg (Neg); Leukocyte Esterase, Urine Neg (Neg); Nitrite, Urine Neg (Neg); Protein, Urine Neg (Neg); Specific Gravity, Urine 1.015 (1.003-1.022); Urobilinogen, Urine NORM (Normal)
[2021-11-23 07:41] LABS: Appearance, Urine Clear (Clear); Color, Urine Yellow (P-Yellow)
[2021-11-23 08:12] LABS: Influenza A, PCR NEGATIVE (NEGATIVE); Influenza B, PCR NEGATIVE (NEGATIVE); Resp Syncytial Virus, PCR NEGATIVE (NEGATIVE); SARS-Cov-2 (COVID-19) PCR, MMC NEGATIVE (NEGATIVE)
[2021-11-23] MEDS ORDERED: AMIT25 PO (10:19)
[2021-11-23] MEDS ORDERED: ASPI81CH PO (10:20)
[2021-11-23] MEDS ORDERED: BUME2 PO (10:21)
[2021-11-23] MEDS ORDERED: CALC.25 PO (10:22)
[2021-11-23] MEDS ORDERED: KLONOPIN1 MG PO (10:23)
[2021-11-23] MEDS ORDERED: PROLIA SC (10:25)
[2021-11-23] MEDS ORDERED: DUTASTERIDE0.5 M3 PO (10:26)
[2021-11-23] MEDS ORDERED: FLUT1DIS2 INH (10:27)
[2021-11-23] MEDS ORDERED: GABA300 PO (10:28)
[2021-11-23] MEDS ORDERED: Iprat-Albut 0.5-3(2. INH (10:30)
[2021-11-23] MEDS ORDERED: MIDO5 PO (10:31)
[2021-11-23] MEDS ORDERED: NEBI5 PO (10:32)
[2021-11-23] MEDS ORDERED: KLOR-CON 1010 ME1 PO (10:33)
[2021-11-23] MEDS ORDERED: SERT100 PO (10:34)
--- NOTE | 2021-11-23 11:39 | NUR ---
INITIAL ASSESSMENT: Patient arrived from the ED via gurney and was slid over to the bed. Pt was resting but easily awakens to verbal stimuli, he is oriented to self only. His speech is garbled and difficult to understand. Pupils are sluggish on the right. He has some generalized weakness. HRR, SR in the 70s BP soft with a MAP of 67. LS DIM in the bases, biox 98% on RA. BT+, he has some bruising noted to the base of his sternum and a couple of spots on his abd. He has scattered skin tears on his head, arms, knees, and an abrasion on his shoulder. He has two pressure sores-one on his coccyx and one on his right upper buttock, this is cleansed and a Mepilex placed. Skin tears cleansed and mepitel one placed. He has two lacerations to the top of his head with kyaw-CDI with some dried blood noted. Skin is dry and his has discoloration to his RLE. Camera and bed alarm on for high fall risk. Call light in reach.
[2021-11-23 12:20] LABS: pH Blood Venous 7.36 (7.34-7.37)
[2021-11-23 12:21] LABS: Base Excess Venous 4.8 mmol/L; Bicarbonate Venous 27.1 mmol/L (24.0-30.0); PCO2 Venous 53.8 mmHg (38-42)
[2021-11-23 12:55] LABS: Calcium, Blood 9.1 mg/dL (8.5-10.1); Creatinine, Blood 2.4 mg/dL (0.60-1.20); Potassium, Blood 3.6 mmol/L (3.5-5.5)
--- NOTE | 2021-11-23 15:30 | NUR ---
Update: Patient is resting with eyes closed, easily awakens with verbal stiumli. He is more alert and oriented. He denies N/T. Blast Setter equal but weak. DAHLIA. Blood pressure has been on the low side with MAPs in the low 60s, Dr. Stafford notified. LR Bolus started. Pt bathed and repositioned. Bed alarm and camera on for safety. Call placed to next of kin and update given. Call light in reach.
--- NOTE | 2021-11-23 17:53 | NUR ---
Summary: Patient arrived from the ED today after arriving via EMS. He was found down at home after falling. He has been sleepy but easily arousable with verbal stimuli. He is slightly difficult to understand. He has been oriented. He was admitted with a subdual hematoma that is slightly worse on CT, has been following up with Neurosurgery at another facility, continue to reevaluate with f/u head ct. No changes to neuro checks. HRR, SR in the 70s. Blood pressure has been on the low side. At times MAP has been in the low 60s, 1L LR Bolus given along with Midodrine MAP has been high 60s. LS DIM in the bases, Biox high 90s on RA. It is documented from previous admission pt is a high aspiration risk, care team aware pt is not agreeable to stick to speech therapy plan for strict NPO. BT+, he has attends in place and had a large liquid stool while in the emergency room. He has a sierra cath patent and draining clear yellow urine. He has multiple wounds from multiple falls. He has two head lacerations to the top of the head with kyaw. Multiple skin tears all cleansed and Mepitel one in place. Pressure ulcer to coccyx and bilateral buttocks with Mepilex in place. Pt has been repositioned every 2 hours. Pt has camera on and bed alarm on for high fall risk he has not made any attempts to get OOB unattended. No other changes this shift. Will report to oncoming RN.
[2021-11-24 04:51] LABS: BASOPHILS ABSOLUTE AUTO 0.09 K/mm3 (0.00-0.23); BASOPHILS PERCENT AUTO 1 % (0-2); EOSINOPHILS ABSOLUTE AUTO 0.23 K/mm3 (0.00-0.68); EOSINOPHILS PERCENT AUTO 2 % (0-6); Hematocrit 31.3 % (37.0-53.0); Hemoglobin 9.6 g/dL (13.5-17.5); IMMATURE GRAN ABSOLUTE AUTO 0.04 K/mm3 (0.00-0.10); IMMATURE GRAN PERCENT AUTO 0 % (0-1); LYMPHOCYTES ABSOLUTE AUTO 1.36 K/mm3 (0.84-5.20); LYMPHOCYTES PERCENT AUTO 13 % (21-46); MONOCYTES ABSOLUTE AUTO 0.72 K/mm3 (0.16-1.47); MONOCYTES PERCENT AUTO 7 % (4-13); Mean Corpuscular HGB 31.6 pg (26.0-34.0); Mean Corpuscular HGB Conc 30.7 g/dL (31.5-36.5); Mean Corpuscular Volume 103 fL (80-100); Mean Platelet Volume 10.5 fL (9.1-12.4); NEUTROPHILS ABSOLUTE AUTO 7.83 K/mm3 (1.96-9.15); NEUTROPHILS PERCENT AUTO 76 % (41-73); Platelet Count 196 K/mm3 (150-400); RDW Coefficient Variation 12.7 % (11.7-14.2); RDW Standard Deviation 47.7 fL (35.1-46.3); Red Blood Cell Count 3.04 M/mm3 (4.30-5.90); White Blood Cell Count 10.27 K/mm3 (4.00-11.30)
[2021-11-24 05:03] LABS: Albumin, Blood 2.1 g/dL (3.4-5.0); Albumin/Globulin Ratio 0.7 (0.8-1.8); Bilirubin, Total 0.5 mg/dL (0.1-1.0); Bun/Creatinine Ratio 10.2 (12.0-20.0); Calcium, Blood 8.3 mg/dL (8.5-10.1); Creatinine, Blood 1.87 mg/dL (0.60-1.20); Globulin, Blood 2.9 g/dL (2.2-4.0); Potassium, Blood 4.1 mmol/L (3.5-5.5)
--- NOTE | 2021-11-24 05:21 | NUR ---
Assumed care of pt at 1900. Patient is A/Ox4 with Q4 neuro checks, all checks WNL. Bedrest with bedpan. Reports no pain, CP/pressure. Temp high of 99.7. Rectal temp probe applied and removed blankets. Slow to respond. Weakness noted t/o. Maintains over 90% on RA, when asleep at times drops into 80's - 1-2L NC applied for sleep. LS clear NOEMI, dim RUL/RML/LLL, dim & coarse RLL. Nonproductive weak cough. SR in 80's on tele, strong +2 radials b/l, and R pedal, with faint +1 in L pedal. Hypotensive with MAP 60-70. At one point maintained MAP below 65, 250mL bolus was ordered. Very briefly brought MAP over 70, but did not sustain for long. MAP remains 60-65. Dr. Taylor notified of pt MAP sustaining 60-65 and that repeat head CT results not in. Order for another 500ml bolus. 2+ pitting edema BLE, 1+ nonpitting edema in bl hands. BM this shift loose, pt reports takes laxatives at home. Christensen cath draining to gravity clear/yellow urine. Brown/discoloration of BLE, LLE with redness and warmth at calf. Scattered bruising t/o. Skin tears noted t/o (see chart). 2 rows of kyaw on L frontal scalp with minimal drainage. Coccyx with opening and white/yellow slough noted, covered with mepilex. Q2 turns. Will report to souleymane RICHARDSON.
--- NOTE | 2021-11-24 08:51 | NUR ---
AM NOTE D51/2 NS INFUSING PER EMAR ORDERS SAME BAG FROM NOC SHIFT, WILL HANG NEW BAG WHEN COMPLETE.
--- NOTE | 2021-11-24 11:12 | NUR ---
Spiritual care visit conducted. Pt is lying in bed and alert. Pt immediately tells me about his medical issues and the plan of care moving forward. Pt explains about his lack of support except for his neighbor, Nitza, who he is hoping she can get certified to be his caregiver. He states that he has no family or friends. He talks about his long history with the [employer] and that he still holds to the beliefs but has had a falling out with the zoroastrianism. He tells me abut his life growing up and and his current struggles and concerns, especially centered around the uncertainties of his health and mobility. I normalize his feelings and provide therapeutic listening, gentle drug abuse counselor and prayer. Pt responds well and shows signs of an increase in his peace.
--- NOTE | 2021-11-24 15:55 | NUR ---
76 year old male admitted to the hospital for Subdural Hematoma and Recent Falls. Pt medical history and comorbidities include: COPD, CKD3, CHF, BPH, Depression, and Osteoporois. Pt has multiple hospital stays. Spoke with Dr Dave and discussed case. Pt agreeable with hospice services and may benefit from a watcher automat long goods care setting. Spoke with Primary RN Glenys and discussed case. Pt would like to complete new Advanced Directive. Pt resting in bed and is A&O. Engaged in therapeutic conversation regarding goals of care. Confirmed Pt's wishes for hospice services with Pt reporting being in agreement. Educated on hospice philosophy with V/U made by Pt. Pt reports already being established with [employer] and receives 24 hours a week caregiver support. He reports concerns that his current caregiver is no longer able to provide the care he needs due to her own frailty. Pt's neighbor and friend Nitza in to assist with AD. Pt discusses with Nitza regarding being his healthcare life assurance representative and she is agreeable. Nitza also reports being in agreement to be Pt's caregiver if she can get approved through [employer]. She reports having already applied. Assisted Pt with completing AD. Discussed hospice agencies to choose from with Pt choosing [facility]. Continued supportive visit and answered questions. Pt reports wishes to return home and is not in agreement for watcher automat long goods care facility. Spoke with [facility] and reported Pt's wishes for [facility]. PPS 40% ADLs 4/6 Palliative Care will remain available
--- NOTE | 2021-11-24 17:55 | NUR ---
SHIFT SUMMARY PT IS ALERT AND ORIENTED X 4. HE REMAINED AWAKE FOR MAJORITY OF SHIFT AND IS ABLE TO MAKE HIS NEEDS KNOW. SBP SOFT RANGING FROM 99-103, MIDODRINE GIVEN PER EMAR ORDERS. SPO2 >95% VIA ROOM AIR. 2L VIA NC APPLIED WHEN PT SLEEPING TO MAINTAIN O2. HE DENIED FEELINGS OF CHEST PAIN/PRESSURE WELL NAUSEA/VOMITTING. DIET ADVANCED THIS AFTERNOON BUT COUGHING NOTED AFTER DINNER. PALLIATIVE CARE RN FUENTES WAS AT BEDSIDE THIS AFTERNOON TO DISCUSS PLAN OF CARE WELL NEIGHBOR MEI TAKING OVER ROLE CAREGIVER. PT EDUCATED ON NEED TO TAKE SMALL BITES WHEN EATING, PT WAS AT 90 DEGREE FOR MEALS. GODFREY CATHETER IS IN PLACE AND DRAINING TO GRAVITY DARK YELLOW OUTPUT. MEPILEX DRESSING OVER COCCYX AND LEFT SHOULDER CHANGED/CLEANED BY THIS NURSE.Q2 TURNING IMPLIMENTED TO KEEP OFF OF PRESSURE POINTS. NO OTHER ACUTE CHANGES NOTED. WILL CONTINUE TO MONITOR UNTIL REPORT GIVEN. CALL LIGHT IN REACH. PT IS NOW WATCHING T.V.
[2021-11-25 05:34] LABS: Vancomycin, Random 12.8 ug/mL
--- NOTE | 2021-11-25 06:01 | NUR ---
Patient remained A/Ox4, neuros checked q4 and all intact. Patient was given a diet on dayshift, patient is known to have issues with dysphagia. MD aware, but plan is to go home on hospice. VSS. Patient slept for much of the night. No CP/pressure. Christensen draining clear/yellow urine. Q2 turns. No acute changes, will report to daysnjft RN.
--- NOTE | 2021-11-25 11:59 | NUR ---
Pt resting in bed upon arrival. Pt denies pain at this time. Offered brief supportive visit and reviewed plan of care. Spoke with RN Caremanager and discussed case. Palliative Care will remain available.
--- NOTE | 2021-11-25 17:44 | NUR ---
SHIFT SUMMARY; ASSUMED CARE AT 0700. A/A/OX3. MOVING ALL FOUR EXTREMETIES WITHOUT DIFFICULTY. JASON TO LEFT SIDE OF HEAD INTACT, INCISION CLEAN AND DRY. GODFREY IN PLACE DRAINING SHARITA URINE TO GRAVITY. MOVES SELF ON GURNEY NEEDED. ASSITED TO BEDPAN NEEDED DURING SHIFT. MEPILEX TO COCCYX CHANGED, COCCYX RED AND NON BLANCHING. Q 4 NEUROS DURING SHIFT UNCHANGED. VSS, WILL CONTINUE TO MONITOR AND TREAT UNTIL CHANGE OF SHIFT.
--- NOTE | 2021-11-26 04:39 | NUR ---
SUMMARY: PATIENT TRANSFERED FROM PCU. PATIENT HAS A GODFREY FOR RETENTION. NO ACUTE EVENTS OVER NIGHT. PATIENT WAS SLIGHTLY CONFUSED AT TIMES DURING THE NIGHT BUT EASILY REORIENTED. PATIENT EXPRESSED THAT HE WANTED TO HAVE HIS LINES REMOVED SO HE COULD LEAVE. EDUCATED PATIENT ON PLAN OF CARE AND POSSIBLE DISCHARGE 11/26 PER MD NOTE HOME ON HOSPICE. PATIENT HAD A BOWEL MOVEMENT ON BEDPAN.
--- NOTE | 2021-11-26 18:41 | NUR ---
SHIFT SUMMARY PT REPOSITIONED ALLOWS. HAS TROUBLE VOICING HIS THOUGHTS AND REQUIRES TIME TO STATE THEM. DENIES PAIN WHEN ASKED. JASON INTACT TO L SIDE OF HEAD. NEURO CHECKS WNL WITH WEAKNESS TO HANDS AND LEGS. POOR APPETITE-ONLY EATING NOTHING TO SMALL AMOUNTS AT A TIME. STATES HE JUST WANTS TO GO HOME.
--- NOTE | 2021-11-27 04:30 | NUR ---
SHIFT SUMMARY: PT IS ALERT AND ORIENTED, SLOW TO RESPOND VERBALLY. PT IS CALM AND COOPERATIVE WITH CARE. PT CALLS APPROPRIATELY BUT NOT ALL THE TIME, DID SET HIS BED ALARM OFF ON ONE OCCASION. PT IS A ONE ASSIST WITH FWW. PT DENIES PAIN, NAUSEA, VOMITING, AND SOB. PT SLEPT MUCH OF THE NIGHT. GODFREY PATENT AND DRAINING YELLOW URINE. NO ACUTE CHANGES OR COMPLICATIONS. WILL REPORT TO DAY NURSE.
[2021-11-27] MEDS ORDERED: ACET325 PO (16:39)
[2021-11-27] MEDS ORDERED: LEVE500 PO (16:40)
--- NOTE | 2021-11-27 17:28 | NUR ---
DR. ALCAZAR NOTIFIED OF WOUND ON PATIENT'S LEFT BECKFORD. DR. ALCAZAR ASKED RN TO DRESS THE WOUND AND SEND THE PATIENT HOME. NO ADDITIONAL ORDERS.
== END 2021-11-27 18:00 | disposition hospice, home (50) | DRG 82 ==
LOC: ER 06:14 → MEDS 09:58 → PCU 09:58 → MEDS 11-25 19:10
PROVIDERS: Student in an Organized Health Care Education/Training Program; ADMIT Family Medicine
PROC: 0HQ0XZZ Repair Scalp Skin, External Approach (ICD-10-PCS; principal; 2021-11-23)
DX: S06.5X9A Traumatic subdural hemorrhage with loss of consciousness of unspecified duration, initial encounter (principal); G92.9 Unspecified toxic encephalopathy; J69.0 Pneumonitis due to inhalation of food and vomit; N17.9 Acute kidney failure, unspecified; L03.116 Cellulitis of left lower limb; J44.0 Chronic obstructive pulmonary disease with (acute) lower respiratory infection; N18.4 Chronic kidney disease, stage 4 (severe); R29.6 Repeated falls; Z66 Do not resuscitate; N40.0 Benign prostatic hyperplasia without lower urinary tract symptoms; Z51.5 Encounter for palliative care; I50.9 Heart failure, unspecified; F32.A Depression, unspecified; J44.9 Chronic obstructive pulmonary disease, unspecified; R13.10 Dysphagia, unspecified; S09.8XXA Other specified injuries of head, initial encounter; S01.01XA Laceration without foreign body of scalp, initial encounter; E87.6 Hypokalemia; M81.0 Age-related osteoporosis without current pathological fracture; R62.7 Adult failure to thrive; F14.11 Cocaine abuse, in remission; Z20.822 Contact with and (suspected) exposure to COVID-19; F10.11 Alcohol abuse, in remission; W18.30XA Fall on same level, unspecified, initial encounter; Z88.0 Allergy status to penicillin; Z79.899 Other long term (current) drug therapy; Z79.52 Long term (current) use of systemic steroids; Z79.51 Long term (current) use of inhaled steroids; Z79.82 Long term (current) use of aspirin; Z86.79 Personal history of other diseases of the circulatory system; Z98.890 Other specified postprocedural states; Z98.49 Cataract extraction status, unspecified eye; Z87.891 Personal history of nicotine dependence; Z68.24 Body mass index [BMI] 24.0-24.9, adult
CPT/HCPCS: 0241U; 12004; 36415; 70450; 71045; 72125; 80048; 80053; 80202; 81003; 82550; 82803; 83605; 83735; 83880; 84145; 84484; 85025; 85730; 87040; 90471; 90714; 93005; 93010; 94640; 94664; 94760; 94762; 96365-59; 96366-59; 96367-59; 96368; 96375-59; 99285-25; A9270; C1751; J0696; J1165; J1953; J3370; J3475; J3480; J7030; J7050; J7120

== ENCOUNTER → 2021-11-28 | Outpatient (CLI) | payer OTHER ==
[~2021-11-28] MED LIST changes: +ACET325 PO; +AMIT25 PO; +DUTASTERIDE0.5 M3 PO; +FLUT1DIS2 INH; +Iprat-Albut 0.5-3(2. INH; +KLONOPIN1 MG PO; +KLOR-CON 1010 ME1 PO; +LEVE500 PO; +MIDO5 PO; +NEBI5 PO; +PROLIA SC
== END | disposition home or self-care (01) ==
LOC: LAB SHORT 14:42 → LAB 14:42
DX: L02.416 Cutaneous abscess of left lower limb (principal); L03.116 Cellulitis of left lower limb
CPT/HCPCS: 87070; 87075; 87077; 87147; 87186; 87205